=== PATIENT | female | born 1990 | race Caucasian/White ===

== ENCOUNTER 2022-08-22 01:02 | Emergency (ER) | payer OTHER ==
[~2022-08-22] VITALS: Ht 154.9 cm; Wt 53.3 kg
[2022-08-22 01:09] VITALS: BP 104/61
== END 2022-08-22 03:00 | disposition left against medical advice (07) ==
LOC: ER 01:02
DX: Z53.21 Procedure and treatment not carried out due to patient leaving prior to being seen by health care provider (principal)